=== PATIENT | female | born 2000 | race Caucasian/White ===

== ENCOUNTER 2025-04-25 13:59 | Emergency (ER) | payer SELFPAY | END 2025-04-25 14:49 | disposition home or self-care (01) | LOC: JD.ED 13:59 | DX: F41.9 Anxiety disorder, unspecified (principal); F17.290 Nicotine dependence, other tobacco product, uncomplicated; Z79.899 Other long term (current) drug therapy | CPT/HCPCS: 93005; 99284 ==